=== PATIENT | male | born 1970 | race Caucasian/White ===

== ENCOUNTER → 2018-07-14 13:33 | Emergency (ER) | payer OTHER ==
[2018-07-14 15:38] VITALS: BP 0/0
--- NOTE | 2018-07-14 15:48 | ED ---
Back Pain - HPI Summary HPI Summary: Patient is a 47-year-old male who presents emergency department for low back pain times several weeks. Patient states he recently started a new physical job her he is bending over frequently. Otherwise denies specific injuries or falls. Pain is worse with movement and twisting. Pain occasionally radiates into arms and legs. Patient denies fever. Patient states he's had back pain in the past. He has no past medical history. Patient states he doesn't like taking medication and has not taken any [id number] analgesics for pain. Symptoms are mild in severity. Denies leg weakness, bowel or bladder incontinence or retention. - History of Current Complaint Chief Complaint: EDBackInjuryPain Stated Complaint: BACK PAIN, ARM NUMBNESS, Time Seen by Provider: 07/14/18 14:53 Hx Obtained From: Patient Pain Intensity: 0 - Allergies/Home Medications Allergies/Adverse Reactions: Allergies Allergy/AdvReac Type Severity Reaction Status Date / Time No Known Allergies Allergy Verified 07/14/18 13:38 Home Medications: Home Medications NK [No Home Medications Reported] 07/14/18 [History Confirmed 07/14/18] PMH/Surg Hx/FS Hx/Imm Hx Previously Healthy: Yes Infectious Disease History: No Infectious Disease History: Denies: Traveled Outside the [place] in Last 30 Days - Family History Known Family History: Positive: Other - noncontributory - Social History Occupation: Employed Full-time Lives: With Family Alcohol Use: None Substance Use Type: Reports: None Smoking Status (MU): Never Smoked Tobacco Review of Systems Constitutional: Negative Negative: Fever, Chills Genitourinary: Negative Positive: Other - low back pain Negative: Weakness, Paresthesia, Numbness All Other Systems Reviewed And Are Negative: Yes Physical Exam Triage Information Reviewed: Yes Vital Signs On Initial Exam: Initial Vitals Temp Pulse Resp BP Pulse Ox 97.4 F 79 18 146/90 96 07/14/18 13:36 07/14/18 13:36 07/14/18 13:36 07/14/18 13:36 07/14/18 13:36 Vital Signs Reviewed: Yes Appearance: Positive: Well-Appearing - Pt. sitting on bed in NAD. Mother present. Skin: Positive: Warm, Dry Head/Face: Positive: Normal Head/Face Inspection Eyes: Positive: Normal, EOMI Neck: Positive: Supple Musculoskeletal: Positive: Other - 5 out of 5 strength in bilateral lower extremities with flexion and dorsiflexion. Straight leg test on the ran about 45. Pain on palpation to the midline of the upper lumbar spine. No CVA tenderness. Neurological: Positive: Normal, CN Intact II-III Psychiatric: Positive: Affect/Mood Appropriate Diagnostics - Vital Signs Vital Signs Temp Pulse Resp BP Pulse Ox 07/14/18 15:35 98.6 F 70 18 0/0 100 07/14/18 13:36 97.4 F 79 18 146/90 96 - Laboratory Lab Statement: Any lab studies that have been ordered have been reviewed, and results considered in the medical decision making process. Back Pain Course/Dx - Course Course Of Treatment: Patient presenting with atraumatic back pain. He is afebrile. No evidence of equina syndrome on exam. He has no neurological deficits on exam. He does have a positive straight leg on the left. Imaging not warranted at this time. Recommended anti-inflammatories and heat. Advised patient to call the [facility] clinic for a close follow-up appointment for evaluation of possible referral to physical therapy. Patient given warning signs and precautions for return. Patient understands and agrees with plan. Work excuse given. - Diagnoses Differential Diagnosis/HQI/PQRI: Positive: Aneurysm, Arthritis, Cauda Equina Syndrome, Compressive Cord Syndrome, Epidural Abscess, Herniated Disc, Strain, Sprain Provider Diagnoses: Lumbar strain Discharge - Sign-Out/Discharge Documenting (check all that apply): Patient Departure - Discharge Plan Condition: Good Disposition: HOME Patient Education Materials: Low Back Strain (ED), Core Strengthening Exercises (GEN), Lower Back Exercises (ED) Forms: *Work Release Referrals: [facility] [Outside] Additional Instructions: Call the [facility] today to schedule an appointment [id number] ibuprofen every 6-8 hours x 10 days for pain Apply warm compresses Return to ER for increased pain, leg numbness/weakness, loss of bowel or bladder control - Billing Disposition and Condition Condition: GOOD Disposition: Home
== END | disposition home or self-care (01) ==
LOC: ED 13:33
DX: S39.012A Strain of muscle, fascia and tendon of lower back, initial encounter (principal); X58.XXXA Exposure to other specified factors, initial encounter; Y92.9 Unspecified place or not applicable
CPT/HCPCS: 99282